=== PATIENT | female | born 1995 | race African-American/Black ===

== ENCOUNTER 2017-11-30 20:33 | Inpatient (IN) | payer SELFPAY ==
--- NOTE | 2017-11-30 21:08 | EDPHY ---
H & P Stated Complaint: Took DayQuil and NyQuil in attempt to harm herself Source: Patient Exam Limitations: No limitations - Personal History LMP (Females 10-55): 8-14 Days Ago Current Tetanus/Diphtheria Vaccine: Unsure Current Tetanus Diphtheria and Acellular Pertussis (TDAP): Unsure - Medical/Surgical History Hx Asthma: Yes Hx Chronic Respiratory Disease: No Hx Diabetes: No Hx Cardiac Disease: No Hx Renal Disease: No Hx Cirrhosis: No Hx Alcoholism: No Hx HIV/AIDS: No Hx Splenectomy or Spleen Trauma: No Other PMH: EEG - Family History Significant Family History: No pertinent family hx - Social History Smoking Status: Never smoked Alcohol Use: Sober Drug Use: None Time Seen by Provider: 11/30/17 20:54 HPI/ROS: CHIEF COMPLAINT: Overdose HISTORY OF PRESENT ILLNESS: Patient is a 22-year-old female who comes to the emergency department brought by her friends after what she thought was an overdose. She states that she took a few tsp of DayQuil this morning and then another few tsp of NyQuil this afternoon around 2:00 p.m. in an attempt to harm herself. She also took a single tablet of her prescribed propranolol this evening which she takes for anxiety. She told her friends that she was thinking about harming herself and they brought her here to the ER. When we discussed the expected course here ER stay she began crying and stated that she did not mean to and that she did not mean to hurt herself that she just wanted to sleep. She stated that she cannot stay here overnight because she has a test tomorrow. She denies co-ingestants. REVIEW OF SYSTEMS: Constitutional: denies: chills, fever, recent illness, recent injury EENTM: denies: blurred vision, double vision, nose congestion Respiratory: denies: cough, shortness of breath Cardiac: denies: chest pain, irregular heart rate, lightheadedness, palpitations Gastrointestinal/Abdominal: denies: abdominal pain, diarrhea, nausea, vomiting, blood streaked stools Genitourinary: denies: dysuria, frequency, hematuria, pain Musculoskeletal: denies: joint pain, muscle pain Skin: denies: lesions, rash, jaundice, bruising Neurological: denies: headache, numbness, paresthesia, tingling, dizziness, weakness Hematologic/Lymphatic: denies: blood clots, easy bleeding, easy bruising Immunologic/allergic: denies: HIV/AIDS, transplant EXAM: GENERAL: Well-appearing, well-nourished and in no acute distress. HEAD: Atraumatic, normocephalic. EYES: Pupils equal round and reactive to light, extraocular movements intact, sclera anicteric, conjunctiva are normal. ENT: TMs normal, nares patent, oropharynx clear without exudates. Moist mucous membranes. NECK: Normal range of motion, supple without lymphadenopathy or JVD. LUNGS: Breath sounds clear to auscultation bilaterally and equal. No wheezes rales or rhonchi. HEART: Regular rate and rhythm without murmurs, rubs or gallops. ABDOMEN: Soft, nontender, normoactive bowel sounds. No guarding, no rebound. No masses appreciated. BACK: No CVA tenderness, no spinal tenderness, step-offs or deformities EXTREMITIES: Normal range of motion, no pitting or edema. No clubbing or cyanosis. NEUROLOGICAL: Cranial nerves II through XII grossly intact. Normal speech, normal gait. 5/5 strength, normal movement in all extremities, normal sensation PSYCH: Tearful SKIN: Warm, dry, normal turgor, no visible rashes or lesions. (Robert Ny) Constitutional: Initial Vital Signs Temperature (C) 36.3 C 11/30/17 20:41 Heart Rate 82 11/30/17 20:41 Respiratory Rate 18 11/30/17 20:41 Blood Pressure 107/89 H 11/30/17 20:41 O2 Sat (%) 99 11/30/17 20:41 O2 Delivery Mode Room Air Allergies/Adverse Reactions: No Known Allergies Allergy (Unverified 11/30/17 20:45) Home Medications: Medication Instructions Recorded Escitalopram Oxalate [Lexapro] 10 mg PO DAILY 12/01/17 Multivitamins [Multivitamin (*)] 1 each PO DAILY 12/01/17 Propranolol HCl [Inderal 10mg (*)] 10 mg PO DAILY 12/01/17 traZODone [traZODONE 50MG (*)] 50 mg PO HS 12/01/17 Medical Decision Making ED Course/Re-evaluation: 2354: Patient has been accepted at [address] [place] [address] Howard. Appropriate transfer be set up. EMTALA. ( Floyd Walsh) 11:00 p.m. the patient is medically cleared. She is awaiting psychiatric evaluation. Care transferred to Dr. Floyd Walsh. (Robert Ny) Differential Diagnosis: Partial list of the Differential diagnosis considered include but were not limited to; depression, anxiety, substance abuse, suicidality and although unlikely based on the history and physical exam, I also considered infection, head injury, bipolar, schizophrenia. (Robert Ny) - Data Points Laboratory Results: Laboratory Results 11/30/17 21:10 11/30/17 21:10 Departure - Departure Disposition: [facility] IP Clinical Impression: Depression Qualifiers: Depression Type: major depressive disorder Major depression recurrence: single episode Active/Remission status: currently active Major depression episode severity: moderate Qualified Code(s): F32.1 - Major depressive disorder, single episode, moderate Condition: Fair
[2017-11-30 21:27] LABS: PLATELET COUNT 289 10^3/uL (150-400)
[2017-12-01] MEDS ORDERED: OLANZapine 5 MG TAB PO PRN (06:26)
[2017-12-01] MEDS ORDERED: MAGNESIUM HYDROXIDE 30 ML UDCUP PO PRN (06:26)
[2017-12-01] MEDS ORDERED: NICOTINE POLACRILEX 2 MG GUM B PRN (06:26)
[2017-12-01] MEDS ORDERED: ACETAMINOPHEN 325 MG TAB PO PRN (06:26)
[2017-12-01] MEDS ORDERED: MAG HYDROX/AL HYDROX/SIMETH 30 ML UDCUP PO PRN (06:26)
[2017-12-01] MEDS ORDERED: LORazepam 0.5 MG TAB PO PRN (06:26)
[2017-12-01] MEDS ORDERED: hydrOXYzine HCL 25 MG TAB PO PRN (14:20)
[2017-12-01] MEDS ORDERED: MELATONIN 3 MG TAB PO PRN (14:20)
[2017-12-01] MEDS: ESCITALOPRAM OXALATE 10 MG TAB PO SCH (15:00)
--- NOTE | 2017-12-01 15:18 | BAPA ---
[f rep st] ADMISSION PSYCHIATRIC ASSESSMENT DATE OF SERVICE: 12/01/2017 CHIEF COMPLAINT: "I broke down." HISTORY OF PRESENT ILLNESS: The patient is a 22-year-old, unmarried [employer] student with a history of anx iety brought to [facility] ED by her friends after she took 2 plastic capfuls of DayQ uil and then took 1 plastic capful of Nyquil. She says it was an attempt to go to sleep and "maybe n ot wake up." Patient is vague about whether or not she considers taking the medications to be an ove rdose with the intent of committing suicide. She told this MD that "I wanted to shut things out" and escape current stressors in her life. She says, "I kind of wanted to go to sleep" and is noncommitt al about whether or not she did not want to wake up. The patient told the [facility] nuclear fuels reclamation engineer that she had been hearing voices "reminding me of things I did, saying I suck, why am I still here." However, whe n gerald FUCHS met with the patient on , the patient denied any auditory hallucinations and says th at she was having negative thoughts and low self-esteem because she felt like she was not performing up to her abilities and said "this semester has been going pretty bad." The patient states that she h as been having trouble focusing and concentrating. She has had a low motivation. Denies feeling hel pless or hopeless. The patient told the [facility] [employer] nuclear fuels reclamation engineer "right now I am just stagnant." She says that she does not feel like she deserves to have friends, that she is not worthy of having a scholarship. The patient reports that she has never felt good about herself and never felt that she was "worthy" and says that even when she does good things, she says, "I just don't feel like I deserve them." The patient says "when things go wrong, I just want to sleep." The patient reports that she has been abus ing NyQuil since the 11th grade. She said that she started taking it "to sleep through things that a re difficult." She said, "I took it to sleep through my 21th birthday. I took it to sleep through Ch ristmas. I take it to sleep through things a lot." The patient states that her roommates and her fr iends felt like "they thought I was abusing certain meds." She says that her friends were not sure wh ether she was abusing the DayQuil and NyQuil to get intoxicated or whether she was using it as a way to cope or to self-harm. She says that at least one of her close friends "knows that I have depressi on and anxiety." She also says that she disclosed to that same friend that she had done something si milar previously last spring, and around November or December of 2016, the patient admits that she took similar amounts of each DayQuil and NyQuil and says it just made her feel sick to her stomach and sarika t she slept and woke up the next day, and did not tell anyone at the time. When this MD met with the patient on the inpatient behavioral health services unit on , she barragan d a bright affect. She was alert, coherent, spontaneous, and fluent speech. She made good eye conta ct. She said that she was not feeling depressed or anxious today. She said that she denied hearing voices or experiencing any type of psychotic symptoms. She denied having any thoughts, plans, or int ent to hurt herself or anyone else. She said that she has been "blaming myself a lot." She says that she has a very negative critical internal monologue with herself where she is always "getting down o n myself" and also always "feeling like I am doing things wrong." She says that she has a tendency to "hold onto things" and "not let things go." She says that "when people from my classes call me and tell me they are upset with me, I take it very seriously and I get very depressed." The patient also says that "I want to go out of my way to make people happy." The patient said that she "slept really well" last night on the unit without taking any medications for sleep. When she woke up this morning , she says she had a good appetite. She felt rested. She denied feeling depressed, that her mood wa s "good." She denied any SI, HI. PAST PSYCHIATRIC HISTORY: The patient states that she had a tic or a tremor when she was in middle s chool or high school and said that her parents took her to see a neurologist. She said that they did an MRI and that she had multiple tests done to rule out whether she was having seizures or what the nature of the tic disorder was. She said that the doctor who evaluated her recommended her parents t israel her to see a psychiatrist, but they never did. She never saw a psychiatrist until she started as a freshman at in the spring. She started seeing Cass, a therapist, padmini gh the [employer] program, and she was referred to Deonte Velasco, prescriber in the mental health clinic. Chapito Velasco started her on Zoloft. The patient said that it made her feel "disconnected" and so he swit ched the medication to Lexapro. Also prescribed trazodone for sleep and propranolol for her anxiety, but patient gave 2 versions of the story. She said that she took medications until the summer and then stopped and has not taken them since, and then another time she told the MD that she "nev er took the Lexapro at all." So she may have been on Zoloft and some of the other medications for a b rief period of time, but at least since May of 2017, the patient has not been taking any medicatio ns. She said that she "felt like things were going really well toward the end of last semester" and said that she felt like "I didn't need to be taking medications." She said last and this saba pedro luis things "were not going very well," but she said that she did want to have to go back and see [facility] doctor because she felt like "that would have been admitting failure and like I couldn't handle thi ngs on my own." She did make an appointment in October and saw Dr. Velasco and Cass. She says that favio disclosed to Dr. Velasco that she had not been compliant with medications and he wrote her new script s for the Lexapro, trazodone, and propranolol, but she says she still has not taken those prescriptio ns to get filled at the pharmacy and has not been back on the medications even though she told Dr. Sarah howard she wanted to go back on medications. The patient has no prior history of psychiatric hospitalizations. No prior suicide attempts other th an the DayQuil and NyQuil that she took in November of last year, though again she took such small do ses of each that there was really no lethal intent involved and again it is not clear whether she too k them wanting to or whether she took them because she just wanted to sort of escape situational stressors in her life as she had done on multiple previous occasions since she was in high school. ALLERGIES: The patient has no known drug allergies. CURRENT MEDICATIONS: The patient is currently not taking any medications. She says that she has an albuterol inhaler which she uses infrequently and even though she is being prescribed Lexapro 10 mg p .o. daily, trazodone 50 mg p.o. q.h.s., and propranolol 10 mg p.o. daily, she has never filled those prescriptions and has not been taking those medications in more than 8 months. PAST MEDICAL HISTORY: The patient has a history of asthma for which she has used inhalers, but she s ays that she has not needed them recently. She denies any surgical history. She denies TBI, no concussions, and no history of seizure disorder. SOCIAL HISTORY: The patient lives in the dorms at [employer]. She is a sophomore. She states that she has 1 roommate who is a close friend. She grew up with both biological parents who are still mar ried and live in [place]. She has 1 younger sister who lives in [place]. She denies any physica l, emotional, or sexual abuse as a child and adolescent. She says that she has a good group of frien ds at . 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 SUBSTANCE USE HISTORY: The patient adamantly denies use of any alcohol, marijuana, or any illicit jaquez bstances. She says, "I just never felt like I needed that kind of stuff." LEGAL HISTORY: Patient denies any current or past legal issues. ADMISSION LABORATORIES: Done in the [facility] ED. Her white cell count was 4.83. Her hemoglobin wa s 13.5, hematocrit 42.0, platelet count 289. Her sodium was 137. Potassium was 4.3, chloride 103. BUN was 12, creatinine 0.8, glucose 86. Calcium was 9.9. Her Beta hCG was negative. Her urine drug screen was negative for all substances. Acetaminophen level was undetected, and her blood alcohol l evel was less than 10. MENTAL STATUS EXAMINATION: This is a short, but well-developed, healthy-looking fem pia. She is dressed in street clothes. Her affect is bright. She makes good eye contact. She is a lert and oriented x4. Her speech is fluent and spontaneous. It is a normal rate and volume. She de nies feeling depressed. She denies any anxiety. Denies having any panic attacks since she has been in the hospital. There is no evidence of psychosis. She denies auditory hallucinations. Her intell ect is average based upon her educational and occupational histories, as well as her vocabulary. IMPRESSION: 1. Major depressive disorder, recurrent, severe, without psychotic features. 2. [id number]-[id number] cough medicine abuse. 3. Psychosocial stressors include lack of social support, academic difficulties. PLAN OF TREATMENT: 1. Admit patient to behavioral health services unit on an M1 hold. 2. Monitor closely for safety and on suicide precautions. Patient is currently able to contract for safety. Denies any thoughts, plans, or intentions to hurt herself or anyone else. 3. The patient states that she does want to start taking the Lexapro while she is in the hospital. Although she has said this multiple times to her outpatient provider and not followed through on it, she says she will take the medication here and does plan to continue to take it and be compliant with taking the medication as prescribed after she leaves the hospital. She states that she does not wan t any medication for sleep and does not want to take trazodone while she is here. She said she slept "very well last night" without taking medication and she would like to continue to try to achieve go od sleep without use of medication. She says that she also is not feeling anxious and does not feel like she needs propranolol or any other medications to treat her anxiety. She would like to just be on Lexapro. 4. The patient plans to follow up with her current outpatient providers, livier Murphy psychiatris maxx that she has seen at [facility] as well as maninder Odell through [facility]. The care provider is working to set up her followup appointments and finalize her aftercare plan. 5. The patient will participate in group therapy and milieu activities and will continue to monitor and observe her for changes in her condition. 6. Estimated length of stay is 3 days. /[id number]/MODL
--- NOTE | 2017-12-01 18:09 | BCON ---
[f rep st] BEHAVIORAL HEALTH CONSULTATION INTERNAL MEDICINE CONSULTATION DATE OF CONSULTATION: 12/01/2017 REFERRING PHYSICIAN: Brad Howard MD REASON FOR REFERRAL: Medical clearance for inpatient behavioral health stay. HISTORY OF PRESENT ILLNESS: This patient was brought to the emergency department yesterday by her friends. She had taken an overdose of DayQuil as well as NyQuil. This was possibly an attempt to harm herself. She was evaluated by the mental health team and admitted for further psychiatric care. She currently denies any acute complaints. PAST MEDICAL HISTORY: 1. Depression. 2. Asthma. PAST SURGICAL HISTORY: She has not had any surgeries. MEDICATIONS: She had prescriptions for propranolol, escitalopram, trazodone, and multivitamin, but she says she was not taking any medications. She has previously used albuterol, but has not had any symptoms of asthma for a while. SOCIAL HISTORY: She is a nonsmoker and nondrinker. She is a student at the [employer]. She lives with roommates and she has a job on campus. FAMILY HISTORY: Medically noncontributory. There is a family history of mental illness. ALLERGIES: There are no known drug allergies. REVIEW OF SYSTEMS: A 10-point review of systems was conducted and was negative. In particular, she denied any symptoms referable to the thyroid including no weight change, no fevers or chills, and she denied any respiratory symptoms consistent with history of asthma. PHYSICAL EXAM: VITAL SIGNS: Blood pressure is 98/60, heart rate is 75, respiratory rate is 14, oxygen saturation is 97% on room air. Temperature is 36.3 degrees centigrade. Her weight is 54.4 kg for a body mass index of 21.3. GENERAL: This is a well-nourished, well-developed woman, cooperative and in no acute distress. HEENT: Extraocular movements are intact. Pupils are equal, round, reactive to light. Mucous membranes are moist. Dentition is in good condition. She has uncrowded airway, Mallampati class 1. NECK: supple. HEART : There is a regular rate and rhythm with no murmurs, rubs, or gallops. LUNGS : Clear to auscultation bilaterally. ABDOMEN: Benign. EXTREMITIES: There is no cyanosis, clubbing, or edema. NEUROLOGIC: She is alert and oriented x3. Cranial nerves 2-12 are grossly intact. There is no focal weakness. Sensation is intact to light touch, and gait is within normal limits. LABORATORY STUDIES: Drawn in the emergency department, CBC was overall within normal limits. She had a slightly low mean cellular hemoglobin and mean cellular hemoglobin content, likely of no clinical significance. Serum chemistry revealed a slightly low carbon dioxide and elevated anion gap, otherwise, renal function and electrolytes were within normal limits. Beta hCG was negative for . Toxicology screen in the serum was negative for acetaminophen or ethyl alcohol, and the urine was negative for any substances of abuse. ASSESSMENT/RECOMMENDATIONS: 1. Mental health issues, pending further evaluation and management per Psychiatry and the mental health team. 2. Asthma, which is quiescent. 3. A low carbon dioxide and an anion gap, likely related to emotional distress. No further evaluation is indicated. She has no signs of any active metabolic disease or acidosis. I see no medical contraindications to this patient's continued stay in the inpatient behavioral health unit or to any psychiatric medications or procedures. Thank you very much for including me in the care of this patient and do not hesitate to contact me or the hospitalist service should there be need for further medical evaluation. /[id number]/MODL MTDD
[2017-12-02 06:48] VITALS: O2SAT 95
[2017-12-02] MEDS: ESCITALOPRAM OXALATE 10 MG TAB PO SCH (08:31)
--- NOTE | 2017-12-02 15:30 | SOAPPROG ---
SOAP Progress Note Assessment/Plan: Assessment: 22 yo [employer] student brought to ED by friends after consuming 2 capfuls of DayQuil and 1 capful of NyQuil. Patient has h/o abusing Nyquil to cope with anxiety, stress and depression. She is non-compliant with meds prescribed by OP psych MD at [facility]. Plan: 12/02/17 15:25 1. Started on Lexapro, patient denies any SE's. 2. CC, Bandar, spoke with FOC this AM. FOC does not "believe in mental illness." He does not think daughter should be on medications. Patient told MD yesterday that initially her POC did not want her receiving treatment for mental health problems and were against her taking meds. However, she says recently they "realize how much of a problem I'm having" and want "whatever is best to help me feel better." MD suspects that patient still feels stigma from her POC related to her mental health and this is main reason for her noncompliance. 3. Patient has f/u with machine adjuster leader case trim at [facility] on 12/04/17. 4. Will likely d/c tomorrow and return to apartment with roommate. Patient also reports her boyfriend is supportive. Subjective: Met with patient, reviewed chart and d/w staff. Patient presents with bright affect, cheerful, but does not want to be in hospital. She attended groups this AM, but spent most of her free time on phone with her SOC and boyfriend. She denies feeling depressed or sad and denies any thoughts, plan or intent to hurt herself. She agrees to stay on Lexapro and MD educated patient that SSRI's require consistent administration to remain at therapeutic levels and may take several weeks to become fully effective initially. Patient also agrees to see her outpatient therapist to discuss academic and other stressors and better ways to manage difficulties. Objective: Vital Signs Temp Pulse Resp BP Pulse Ox 36.7 C 62 15 113/56 L 95 12/02/17 06:00 12/02/17 06:00 12/02/17 06:00 12/02/17 06:00 12/02/17 06:00 MSE: Affect: Euthymic Mood: "OK" TP: Linear TC: Denies any SI/HI, no AH/VH Insight/Judgment: Poor - Time Spent With Patient Time Spent With Patient: 20" - Pending Discharge Pending Discharge Within 24 Hours: No Pending Discharge Within 48 Hours: No ICD10 Worksheet Patient Problems: Problems Problem Status Onset Depression Acute
[2017-12-03 06:56] VITALS: BP 107/56; PULSE 77; RESP 14; TEMP 98
[2017-12-03] MEDS: ESCITALOPRAM OXALATE 10 MG TAB PO SCH (08:40)
--- NOTE | 2017-12-03 16:54 | BDS ---
[f rep st] BEHAVIORAL HEALTH DISCHARGE SUMMARY REASON FOR ADMISSION: Patient is a 22-year-old unmarried [employer] student with a history of anxiety, broug ht to [facility] ED by her friends after she took 2 capsules of DayQuil and then took 1 capsule of NyQuil. She says it was an attempt to go to sleep and "maybe not wake up." Patient is vague about whether or not she considered taking the medications to be an overdose with the intent of committing suicide. She told this MD that, "I wanted to shut things out" and escape current stressors in her life. She s ays, "I kind of wanted to go to sleep," and is noncommittal about whether or not she did not want to wake up. The patient told the [facility] forensic toxicologist that she had been hearing voices "reminding me of things I did, saying I suck, why am I still here?" However, when this MD met with the patient on , the patient denied any auditory hallucinations and says that she was having negative thoughts and low self-esteem because she felt like she was not performing up her abilities and said "this semester barragan s been going pretty bad." ADMITTING DIAGNOSES: 1. Major depressive disorder, recurrent, severe, without psychotic features. 2. Focv-qvd-hdhfpvv cough medicine abuse. 3. Psychosocial stressors include lack of social support, academic difficulties. ADMITTING PHYSICAL EXAMINATION: Performed by Dr. Que Saleh, revealed no acute physical finding s. ADMISSION LABORATORIES: White cell count was 4.83, hemoglobin was 13.5, hematocrit was 42, platelet count 289. Sodium 137, potassium 4.3, chloride 103, BUN 12, creatinine 0.8, glucose 86, calcium 9.9. Beta hCG was negative. Her urine drug screen was negative for all substances. Acetaminophen level was undetected. Her BAL was less than 10. HOSPITAL COURSE: On her first day of admission the patient had a much brighter affect. She was soci able, interacted with peers appropriately. She was pleasant, polite, cooperative with interview. Sh favio stated that she was no longer feeling sad, helpless, or hopeless. She said she did not want to . She says that she wanted to get back on her medications and she wanted to be compliant with treatm ent because she said, "I know I need to do that to feel better." The patient admits that she has bee n resistant to taking psychiatric medications and has been noncompliant with followup, partly because her family, according to the patient, "does not believe in mental illness," says that her parents barragan ve a hard time accepting that she has mental health problems and that her parents do not believe in t aking medications for mood-related problems, and so the patient has very ambivalent feelings about be ing on medications and having a diagnosis of depression and anxiety, and says that she is more reluct ant to go to her appointments because she knows that it is costing her parents money and that they do not believe she actually needs it. During this hospitalization the patient said that she had a conv ersation with her parents and that they were both more receptive to "realize how much of a problem I' m having," and they say that they want her to do "whatever is best to help me feel better." Patient attended all groups while she was on the unit. She spent a lot of her free time on the phone with he r family and with her boyfriend. She denies feeling depressed or sad, denied any thoughts, plans, or intents to hurt herself or anyone else. She said that she did want to get on the Lexapro. She actu ally had never started taking it even though her doctor had prescribed it for her months ago. This M D reviewed the risks, benefits, and side effects of Lexapro with the patient, which she had been told about before. MD also stressed that SSRIs require consistent administration in order to remain at t herapeutic levels and that they may take several weeks to become fully effective. The patient said t hat she understood that and gave consent to start Lexapro 10 mg p.o. daily while she was in the [facility]. She tolerated that dose. She had no side effects or any physical complaints while she was here . She says that she is interested in seeing an outpatient therapist to discuss academic and other st ressors and find better ways to manage her difficulties. MD also stressed that the patient has an un healthy relationship with NyQuil, according to what the patient reports, that she uses NyQuil since s he was in high school in order to avoid dealing with stressors. She says she frequently takes NyQuil in order to "sleep through" things that bother her or a stressful social situation. She said she to ok NyQuil to "sleep through my 21th birthday." She also says that she took NyQuil in order to "sleep through Sanjay." So advised the patient that there is alcohol in NyQuil and it is one of the things that she maybe developing a physiological dependence on, but clearly has a psychological relia nce on using these types of medications in order to help her cope, and patient acknowledged that this was not the best way to handle her problems and that she would be willing to talk to a therapist abo ut reducing her dependence on vkwz-fxy-mfkmajw medications and finding better ways to handle her prob lems. CONDITION AT DISCHARGE: The patient was stable. Her affect was euthymic. She was appropriate. She was cheerful, bright. She denied any thoughts, plans, or intents to hurt herself or anyone else. T here was no evidence of psychosis or lucy. She denied feeling sad, helpless, or hopeless. She said that she was looking forward to seeing her boyfriend and seeing her parents. ATTITUDE AT DISCHARGE: The patient was "excited" and future oriented. She said she was grateful for the time in the hospital because it allowed her to start taking the med consistently and she wanted to continue that pattern. DISCHARGE MEDICATIONS: Lexapro 10 mg p.o. daily. DISCHARGE DIAGNOSES: 1. Major depressive disorder, single episode, severe, without psychotic features. 2. Gcah-ahi-eerrfol cough medicine abuse. 3. Psychosocial stressors include academic difficulties, limited social support, and parents do not believe in mental illness. DISPOSITION: The patient was discharged back to her apartment. FOLLOWUP: With comp field case manager at [facility] on 12/04/2017, and she has an appointment to see Dr. Deonte Arreola, her outpatient psychiatrist, and a therapist through [facility] the end of the month. LEGAL COURSE: The patient signed in voluntarily prior to the expiration of her mental health hold an d prior to her discharge. /[id number]/MODL
== END 2017-12-03 13:15 | disposition home or self-care (01) | DRG 885 ==
LOC: BBEH 12-01 01:55
PROVIDERS: ADMIT Psychiatry & Neurology Psychiatry; ATTEND Psychiatry & Neurology Psychiatry
DX: F32.2 Major depressive disorder, single episode, severe without psychotic features (principal)
CPT/HCPCS: 80305; G0480

== ENCOUNTER 2018-09-28 15:42 | Emergency (ER) | payer MEDICAID ==
--- NOTE | 2018-09-28 17:03 | EDPHY ---
H & P Stated Complaint: ORTIZ Time Seen by Provider: 09/28/18 16:04 HPI/ROS: CHIEF COMPLAINT: Headache HISTORY OF PRESENT ILLNESS: 22-year-old female presents with headache. Onset of a mild right frontal headache 2 evenings ago. She went to sleep and when she awoke yesterday morning, she had a severe right frontal headache. She mainly laid in bed all day because of the headache. No associated nausea, vomiting, weakness, numbness, fever or other symptoms. She took ibuprofen once yesterday with minimal relief. When she awoke this morning, the headache was still present, but much better. She did her usual activities today. She currently has a right frontal headache, 12/26. No recent head injury, URI or fever. No prior history of migraine headaches. REVIEW OF SYSTEMS: complete 10 point ROS reviewed and is negative except for the noted elements in the HPI - Personal History Current Tetanus/Diphtheria Vaccine: Yes Current Tetanus Diphtheria and Acellular Pertussis (TDAP): Yes - Medical/Surgical History Hx Asthma: Yes Hx Chronic Respiratory Disease: No Hx Diabetes: No Hx Cardiac Disease: No Hx Renal Disease: No Hx Cirrhosis: No Hx Alcoholism: No Hx HIV/AIDS: No Hx Splenectomy or Spleen Trauma: No Other PMH: EEG, bipolar, anxiety, asthma - Family History Significant Family History: No pertinent family hx - Social History Smoking Status: Never smoked Alcohol Use: None Drug Use: None - Physical Exam Exam: General Appearance: Alert, pleasant Eyes: Pupils equal and round, no conjunctival pallor or injection ENT, Mouth: Mucous membranes moist Neck: Normal inspection Respiratory: Lungs are clear to auscultation Cardiovascular: Regular rate and rhythm Gastrointestinal: Abdomen is soft and nontender Neurological: Alert, oriented x3, cranial nerves II through XII intact, motor 5 /5, sensory intact to light touch, normal gait Skin: Warm and dry, no rash Extremities: Normal inspection Psychiatric: Mood and affect normal Constitutional: Initial Vital Signs Temperature (C) 37 C 09/28/18 15:46 Heart Rate 68 09/28/18 15:46 Respiratory Rate 16 09/28/18 15:46 Blood Pressure 116/66 09/28/18 15:46 O2 Sat (%) 99 09/28/18 15:46 O2 Delivery Mode Room Air Allergies/Adverse Reactions: No Known Allergies Allergy (Unverified 12/11/18 15:45) Medical Decision Making - Diagnostics Imaging Results: Imaging Impressions Head CT 09/28/18 16:59 Impression: 1. Normal CT brain without contrast. 2. No sinusitis. 3.Consider MRI of the brain, if there is continued clinical concern. Findings and recommendations discussed with Emergency Department physician, MANUELA HERRERA at 17:50 hour, 09/28/2018. Final report concurs with initial preliminary interpretation. Imaging: Discussed imaging studies w/ shank piece tacker Radiologist ED Course/Re-evaluation: This patient presents with a persistent headache. Neurologic exam is normal. CT scan ordered because of pt request and the severity of pain yesterday. Clinically, I do not suspect meningitis or subarachnoid hemorrhage, given lack of fever and gradual onset of headache. The patient declines pain medication. CT results discussed with the patient. Neurologic exam remains normal and she continues to have a mild headache. Will follow up with Neurology. Likely tension versus migraine headache. No evidence of serious etiology for headache. Differential Diagnosis: Headache including but not limited to subarachnoid hemorrhage, migraine headache , tension headache and infectious causes such as meningitis, pharyngitis and sinusitis. - Data Points Point of Care Test Results: Urine Collection Date 09/28/18 Collection Time 17:20 HCG Results Negative Departure - Departure Disposition: Home, Routine, Self-Care Clinical Impression: Headache Qualifiers: Headache type: other headache syndrome Qualified Code(s): G44.89 - Other headache syndrome Condition: Good Instructions: Acute Headache (ED) Additional Instructions: Return for worsening symptoms or any concerns. Ibuprofen 600 mg 3 times daily while the pain persists. Referrals: Raymon Leavitt MD [Medical Doctor] - 2-3 days, if not improved
[2018-09-28 18:26] VITALS: BP 105/67
== END 2018-09-28 18:27 | disposition home or self-care (01) ==
DX: G44.89 Other headache syndrome (principal)